=== PATIENT | male | born 1965 | race Caucasian/White ===

== ENCOUNTER 2019-07-31 18:06 | Emergency (ER) | payer OTHER ==
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
[2019-07-31] MEDS ORDERED: Adacel Vial IM ONE ×2 (19:02→19:45)
[2019-07-31 19:20] LABS: Hematocrit 38.1 % (42-50); Hemoglobin 12.6 gm/dl (12.5-18.0); Mean Corpuscular Hemoglobin 30.4 pg (26-32); Mean Corpuscular Hgb Concent. 33.1 g/dl (32-36); Mean Platelet Volume 9.6 fl (6-9.5); Platelet Count 416 K/mm3 (150-450); Red Blood Count 4.14 M/mm3 (4.1-5.6); Red Cell Distribution Width 12.2 % (11.5-14.0); White Blood Count 11.6 K/mm3 (4.0-10.5)
[2019-07-31 19:34] LABS: ALBUMIN 3.9 g/dL (3.5-5.0); ALKALINE PHOSPHATASE 68 U/L (38-126); ANION GAP 13.1 MEQ/L (5-15); BLOOD UREA NITROGEN 19 mg/dL (9-20); CHLORIDE 109 mmol/L (98-107); Calcium 8.7 mg/dL (8.4-10.2); Carbon Dioxide 23 mmol/L (22-30); Creatinine 1 0.92 mg/dL (0.66-1.25); Glucose 90 mg/dL (74-106); Potassium 3.6 mmol/L (3.5-5.1); SGOT/AST 31 U/L (17-59); SGPT/ALT 22 U/L (0-50); SODIUM 141 mmol/L (137-145); Total Protein 7.2 g/dL (6.3-8.2)
[2019-07-31 20:30] VITALS: BP 125/62; PULSE 77; O2SAT 99
[2019-07-31] MEDS ORDERED: Hydromorphone 1 mg/ml Ampule IV ONE (20:43)
[2019-07-31] MEDS ORDERED: Hydromorphone 1 mg/ml Ampule ONE (20:44)
[2019-07-31] MEDS ORDERED: Zofran 4 MG/2 ML VIAL IV ONE (20:45)
[2019-07-31] MEDS ORDERED: Zofran 4 MG/2 ML VIAL ONE (20:45)
[2019-07-31 22:43] LABS: BAND 1 % (0.0-2.0); Basophil 1 % (0.0-1.0); Eosinophil 1 % (0.00-3.0); Lymphocytes 36 % (24-44); Monocyte 6 % (0.0-12.0); Neutrophils 55 % (36.-66.); Platelet Estimate NORMAL (NORMAL); Total Cells Counted 100
[2019-07-31 22:44] LABS: Toxic Granulation RARE
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
== END 2019-07-31 20:54 | disposition short-term general hospital (02) ==
LOC: ED 18:06
DX: S42.191A Fracture of other part of scapula, right shoulder, initial encounter for closed fracture (principal); S51.812A Laceration without foreign body of left forearm, initial encounter; S29.9XXA Unspecified injury of thorax, initial encounter; W22.8XXA Striking against or struck by other objects, initial encounter; M25.511 Pain in right shoulder
CPT/HCPCS: 12001; 36000; 36415; 71250; 72125; 72128; 73200; 80053; 84484; 85025; 90471; 90715; 93005; 93041; 94760; 96374; 96375; 99285; 99291; J1170; J2405

== ENCOUNTER 2019-08-06 23:31 | Emergency (ER) | payer OTHER ==
[2019-08-07] MEDS ORDERED: DILAUDID 2 MG INJECTION IM ONE (00:29)
[2019-08-07] MEDS ORDERED: ZOFRAN ODT 4 MG PO ONE (00:30)
[2019-08-07] MEDS ORDERED: ZOFRAN ODT 4 MG ONE (00:38)
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
[2019-08-07] MEDS ORDERED: Hydromorphone 1 mg/ml Ampule ONE (00:39)
[2019-08-07 00:49] LABS: Appearance CLEAR (CLEAR); Bilirubin NEGATIVE (NEGATIVE); Blood SMALL Ery/ul (0-5); Glucose NEGATIVE (NEGATIVE); Ketones SMALL (NEGATIVE); Leukocyte Esterase NEGATIVE (NEGATIVE); Mucus SLIGHT /HPF (NEGATIVE); Nitrite NEGATIVE (NEGATIVE); Protein,Urine Dip NEGATIVE (Negative); Specific Gravity 1.023 (1.005-1.025); Urobilinogen 4 mg/dL (0-1)
[2019-08-07 01:58] VITALS: BP 125/64; PULSE 78; O2SAT 96
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
== END 2019-08-07 01:47 | disposition home or self-care (01) ==
LOC: ED 23:31
DX: M12.9 Arthropathy, unspecified (principal); M54.5 Low back pain; S39.012A Strain of muscle, fascia and tendon of lower back, initial encounter
CPT/HCPCS: 72100; 81001; 96372; 99284; J1170; Q0162